=== PATIENT | female | born 1955 | race Caucasian/White ===

== ENCOUNTER 2016-12-21 13:34 | Outpatient (CLI) | payer BC ==
--- NOTE | 2016-12-21 14:31 | BD ---
DEXA BONE DENSITOMETRY: (Dual energy X-ray Absorptiometry) DATE: 12/21/16. HISTORY: A 61-year-old white female for followup age-related postmenopausal osteoporosis screening examinatio n. Height 68.5 minutes. Weight 167 pounds. Age of menopause 49 years. COMPARISON: 10/13/15. FINDINGS: The bone mineral density (BMD) is given in grams per square centimeter (g/cm2): LUMBAR SPINE: BMD(g/cm2) T-score Z-score L1: 0.845 -1.3 0.1 L2: 0.905 -1.1 0.4 L3: 0.995 -0.8 0.8 L4: 0.977 -0.8 0.9 Total: 0.932 -1.0 0.5 Change in BMD compared to previous DEXA: -0.3%. HIP: Femoral neck: 0.588 -2.3 -1.0 Total: 0.765 -1.5 -0.4 Change in BMD compared to previous DEXA: -0.8%. IMPRESSION: 1) The mean bone mineral density of the lumbar spine is normal. Fracture risk is not increased. 2) The bone mineral density of the femoral neck is osteopenic. Fracture risk is increased. RON Jim POS: CORA
--- NOTE | 2016-12-21 15:40 | MMO ---
BILATERAL SCREENING MAMMOGRAM: INDICATION: Annual screening evaluation. COMPARISON: Prior exam dated 09/04/14. FINDINGS: The interpretation of this examination was assisted with computer-aided detection. The breast parenchyma is heterogeneously dense which limits the sensitivity of mammography. There are benign-appearing calcifications within both the right and left breasts. No suspicious mass, cluster of microcalcifications, or area of architectural distortion is evident. IMPRESSION: BI-RADS category 2 - benign. Recommend routine annual mammographic screening. BIRADS 2: Benign Finding(s) Routine annual screening mammography (for women over age 40) POS: SUSANNE
== END 2016-12-21 13:35 | disposition home or self-care (01) ==
LOC: MAMMO 13:34
PROVIDERS: ATTEND Family Medicine
DX: Z12.31 Encounter for screening mammogram for malignant neoplasm of breast (principal); M85.80 Other specified disorders of bone density and structure, unspecified site
CPT/HCPCS: 77067; 77080; G0202

== ENCOUNTER 2017-12-26 09:56 | Outpatient (CLI) | payer BC | END 2017-12-26 09:57 | disposition home or self-care (01) | LOC: BICMAMMO 09:56 | PROVIDERS: ATTEND Family Medicine | DX: Z12.31 Encounter for screening mammogram for malignant neoplasm of breast (principal) | CPT/HCPCS: 77063; 77067 ==

== ENCOUNTER 2018-04-11 10:03 | Inpatient (IN) | payer BC ==
[2018-04-11 10:28] LABS: #Basophils 0.1 thou/uL (0.0-0.2); #Eosinphils 0.6 thou/uL (0.0-0.7); #Lymphocytes 1.1 thou/uL (1.20-3.40); #Monocytes 0.5 thou/uL (0.11-0.59); #Neutrophils 2.5 thou/uL (1.40-6.50); %Basophils 1.2 % (0.0-1.0); %Eosinophils 12.7 % (0.0-10.0); %Lymphocytes 23.3 % (21.0-51.0); %Neutrophils 51.8 % (42.0-75.0); Hemoglobin 13.4 g/dL (12.0-16.0); Mean Corpuscular HGB CONC 31.7 g/dL (32.0-36.0); Mean Corpuscular Hemoglobin 29.2 pg (27.0-31.0); Mean Corpuscular Volume 92.3 fL (78.0-98.0); Mean Platelet Volume 7.5 fL (7.4-10.4); Platelet Count 253 thou/uL (130-400); RBC Distribution Width 12.7 % (11.5-14.5); Red Blood Cell (RBC) Count 4.58 mill/uL (4.20-5.40); White Blood Cell (WBC) Count 4.8 thou/uL (4.8-10.8)
[2018-04-11] MEDS ORDERED: Ondansetron PF 4 MG/2 ML Vial ONE (10:33)
[2018-04-11] MEDS ORDERED: Fentanyl 100 MCG/2 ML VIAL ONE (10:42)
[2018-04-11 10:55] LABS: ALT (SGPT) 560 U/L (8-55); AST (SGOT) 322 U/L (5-34); Albumin 4.3 g/dL (3.4-4.8); Alkaline Phosphatase 292 U/L (40-150); Anion Gap 18 mmol/L (10-20); BUN (Urea Nitrogen) 23 mg/dL (9.8-20.1); Bilirubin, Total 9.3 mg/dL (0.2-1.2); Calc. Creatinine Clearance 0 mL/min (70-130); Calcium 10.2 mg/dL (7.8-10.44); Carbon Dioxide 22 mmol/L (23-31); Chloride 101 mmol/L (98-107); Estimated GFR-MDRD 79; Globulin 2.8 g/dL (2.4-3.5); Glucose 71 mg/dL (80-115); Lipase 27 U/L (8-78); Potassium 3.5 mmol/L (3.5-5.1); Protein, Total 7.1 g/dL (6.0-8.3); Sodium 137 mmol/L (136-145)
--- NOTE | 2018-04-11 11:33 | CT ---
CT ABDOMEN AND PELVIS WITH IV CONTRAST: Date: 04/11/18 HISTORY: Abdominal pain. Jaundice. FINDINGS: No comparison. Lung bases are clear. A 0.4 cm cyst is present within a nondilated ratna at the inferior pole of the left kidney. Small rig ht renal cysts. No urinary tract obstruction. Urinary bladder is decompressed. Degenerative changes lumbar spine. Lack of oral contrast limits evaluation of the bowel. No evidence of obstruction. There is subtle cir cumferential wall thickening involving the upper rectum and rectosigmoid junction. IMPRESSION: 1. Noncomplicated inflammatory appearance of the upper rectum and rectosigmoid junction. Clinical co rrelation regarding other signs and symptoms of noncomplicated proctitis is required. 2. Small, nonobstructing left renal calculus. POS: CORA
[2018-04-11 11:43] LABS: Blood, Urine Negative (Negative); Clarity CLOUDY (Clear); Glucose, Urine (Dipstick) Negative (Negative); Protein, Urine (Dipstick) Trace mg/dL (Neg-Trace); Specific Gravity, Urine 1.026 (1.002-1.036); Urobilinogen 0.2 mg/dL (0.2-1.0); pH, Urine 5.5 (5.0-9.0)
[2018-04-11 11:49] LABS: Bacteria/HPF None Seen HPF (None Seen); Hyaline Casts/LPF 0-3 HYALINE CAST LPF (0-3 Hyaline); Pathc Cast-AUWi Flag 0.87 (0-2.49); Squamous Epithelial 0-3 HPF (0-3)
[2018-04-11 11:50] LABS: Bilirubin Large (Negative); Leukocyte Negative (Negative); Nitrite Negative (Negative)
[2018-04-11 12:08] LABS: RBC/HPF 0-3 HPF (0-3)
[2018-04-11 12:09] LABS: Renal Epithelial 0-3 HPF (0-3); Transitional Epithelial 0-3 HPF (0-3)
--- NOTE | 2018-04-11 13:18 | ULT ---
GALLBLADDER ULTRASOUND: Date: 04/11/18 HISTORY: Right upper quadrant pain and jaundice. FINDINGS: Real-time imaging of the right upper quadrant demonstrates a contracted gallbladder. The patient does state she is NPO. I do not see any definite gallstones. Gallbladder wall appears thickened at 5-6 mm . Common duct is 4.0 mm. Liver parenchyma shows some heterogeneity, but no evidence of any type of di screte mass. Pancreas region is partially obscured. The right kidney is normal in size and is not obs tructed. IMPRESSION: Contracted gallbladder. The patient does state she is NPO. The gallbladder wall appears slightly thic kened, but no gallstones are identified. The common duct is normal in caliber at 4-5 mm. POS: TPC
[2018-04-11] MEDS ORDERED: ISOVUE-370 76%-LOCM 1 ML ONE (13:30)
[2018-04-11 15:33] LABS: HBCM Index 0.07 S/CO (0-0.79); Hep A IgM AB Non-Reactive (NonReactive); Hep A IgM S/CO 0.11 S/CO (0-0.79); Hep B Surf Ag Non-Reactive S/CO (NonReactive); Hepatitis B Core IgM Abs Non-Reactive (NonReactive)
[2018-04-11 15:38] LABS: Hep C IgG Ab Reflex HepC Qnt (NonReactive); Hep C Index 1.49 S/CO (0-0.79)
[2018-04-11] MEDS ORDERED: Ondansetron ODT 4 MG TAB PO PRN (16:36)
[2018-04-11] MEDS ORDERED: Ondansetron PF 4 MG/2 ML Vial IVP PRN (16:36)
[2018-04-11] MEDS ORDERED: Calcium Carbonate 500 MG ChewTAB PO PRN (16:36)
[2018-04-11] MEDS ORDERED: Senokot S 8.6-50 MG TAB PO PRN (16:36)
[2018-04-11] MEDS ORDERED: hydrALAZINE 20 MG/ML VIAL SLOW IVP PRN (16:38)
[2018-04-11 17:04] LABS: INR-International Normal Ratio 0.9; Prothrombin Time 12.7 SEC (12.0-14.7)
[2018-04-11 17:05] LABS: PTT 35.2 SEC (22.9-36.1)
--- NOTE | 2018-04-11 17:26 | HP ---
PRIMARY CARE DOCTOR: Dr. Reed. CHIEF COMPLAINT: Jaundice. HISTORY OF PRESENT ILLNESS: The patient is a 62-year-old female, who presented to the emergency room from her primary care physician's office with above complaints. Over the last 1 week, the patient has not been feeling well. She had flu-like symptoms. She felt generally weak and fatigued. She also had some loose stools. The stool was light color. She also noticed her urine to be dark. Later on, she started noticing darkening of her skin/jaundice. She also had some abdominal pain mainly on the right side, aggravated by food. She has lost approximately 5 pounds over the last 1 week. She has also lost her appetite. She felt nauseous without any vomiting. She had a colonoscopy approximately 10 years ago. She denies any nkkm-chi-lxrcjuf medications. She took some bpqa-lts-esdyehy decongestant over the last 3 or 4 days. She was on Bactrim 2 weeks ago for toe infection. The patient was found to have a bilirubin of 8.3 as outpatient yesterday. She was sent to the emergency room for evaluation. In the emergency room, bilirubin was 9.3 with AST 322, ALT 560 with alkaline phosphatase of 292. The patient drinks alcohol socially and denies any heavy alcohol intake. PAST MEDICAL HISTORY: Degenerative joint disease. PAST SURGICAL HISTORY: 1. Hysterectomy. 2. Rotator cuff repair. 3. Tubal ligation. ALLERGIES: THE PATIENT DENIES ANY DRUG ALLERGIES. SOCIAL HISTORY: The patient currently lives at home with her family. She is a nonsmoker. Drinks alcohol socially. She is . FAMILY HISTORY: Father with esophageal cancer. Diabetes also runs in her family. REVIEW OF SYSTEMS: All other review of systems were reviewed and were found negative. PHYSICAL EXAMINATION: VITAL SIGNS: Temperature 97.4, respirations 17, pulse rate of 93, blood pressure 123/80 with O2 saturation of 96% on room air. GENERAL: A 62-year-old female in no apparent distress, feels generally weak and fatigue. HEENT: Head is atraumatic, normocephalic. Sclerae are anicteric. Moist mucous membranes. No oral lesion. Jaundice noted. NECK: Supple. No JVD. No carotid bruit. LUNGS: Clear to auscultation bilaterally. No wheezing, rales, or rhonchi. HEART: S1, S2 present. Regular rate and rhythm. ABDOMEN: Soft, nontender. Bowel sounds are present. There was minimal tenderness over the right quadrant without any rebound or guarding. No costovertebral angle tenderness. EXTREMITIES: No edema or calf tenderness. NEUROLOGY: Grossly nonfocal. Moves all 4 extremities. PSYCHIATRY: Alert, awake, oriented x3. SKIN: Warm and dry. LYMPH NODES: No palpable lymph nodes in the neck. PERIPHERAL VASCULAR: Radial pulses palpable bilaterally. MUSCULOSKELETAL: No joint swelling or tenderness. LABORATORY FINDINGS: As discussed above. BUN 23, creatinine 0.74. WBC 4.8 with hemoglobin 13.4, platelets 253. CT scan of the abdomen and pelvis was negative for acute findings except for some thickening in the rectum. Ultrasound of the gallbladder showed contracted gallbladder with normal size common duct. IMPRESSION: 1. Acute Liver failure/Painless jaundice of unclear etiology. ?Bactrim induced vs Viral infection. r/o [employer] etiology 2. Dehydration. 3. Chronic kidney disease stage 2. 4. Generalized weakness, fatigue with flu-like symptoms and 5-pound weight loss over the last 1 week. 5. Contracted gallbladder. 6. Thickening of the upper rectum and the rectosigmoid colon on the CT scan. PLAN: The patient will be monitored on the medical floor. We will check viral hepatitis profile, ARELI, CMV, EBV and acetaminophen level. We will check PT/ INR. Consult Gastroenterology, Dr. Davis. Plan of care was discussed with the patient in detail. She stated understanding. Job ID: [id number] MTDD
[2018-04-11] MEDS: Sodium Chloride 0.9% 1,000 ML IV SCH (18:30)
[2018-04-11 19:23] VITALS: BMI 23.2
[2018-04-11 19:59] LABS: Acetaminophen Less than 6.0 mcg/mL (10.0-30.0)
[2018-04-11] MEDS: Famotidine 20 MG TAB PO SCH (20:58)
--- NOTE | 2018-04-11 22:14 | CON ---
DATE OF CONSULTATION: 04/11/2018 REASON: Jaundice and abnormal liver tests. HISTORY: Ms. Tay is a 62-year-old female without any significant medical illness, who was referred to the ER for evaluation of jaundice. Her symptoms started approximately 1 week ago when she had "upset" stomach characterized as mostly cramps followed by some loose stools. She did have some nausea, but without any actual emesis. She denies any severe localizing abdominal pain. She does have some malaise, but without any other significant symptoms. About 3 days ago, she began noticing dark urine and acholic stool. She was seen by her primary care doctor , who noted jaundice. Subsequent blood test was drawn and results came back yesterday , showed elevation of her liver enzymes and bilirubin. She was thus referred for further evaluation of possible gallbladder disease. After presenting to the ER , she had an abdominal pelvic CT that did not show any significant finding. Gallbladder ultrasound did not show any cholelithiasis. Common bile duct measures 4 mm. She denies any recent travels. She did take a course of Bactrim, finished 2 weeks ago for toe infection. She lives by herself. There is no exposure history. She does not have any risk factors for chronic liver disease. There are no prior blood transfusion, tattoos, sharing needles. There is no family history of liver disease. PAST MEDICAL HISTORY: 1. Prior hysterectomy. 2. Rotator cuff repair. 3. Tubal ligation. ALLERGIES: NONE. MEDICATIONS: At home include: 1. Ibuprofen 200 mg daily. 2. Multivitamin. SOCIAL HISTORY: The patient by herself. Has no tobacco or alcohol usage. She is a former smoker, stopped 12 years ago. The patient consumes 3 glasses of wine per week. FAMILY HISTORY: Negative for any known GI problem, liver disease, or GI malignancy. REVIEW OF SYSTEMS: 10-point review of systems did not show any other pertinent positives or negatives. Completely negative. PHYSICAL EXAMINATION: VITAL SIGNS: Temperature is 97.9, blood pressure 114/75, pulse of 90. GENERAL: She is alert, conversant, no distress. She is fully oriented. HEENT: Shows bilateral icteric sclerae. Oropharynx is clear. NECK: Supple. No adenopathy. CV: Shows normal S1 and S2. Regular rate and rhythm. CHEST: Shows breath sounds. No adventitious sounds. ABDOMEN: Soft and flat. No distention. No tympany. No tenderness. Liver edge is not palpable. Spleen was not palpable. EXTREMITIES: Shows no edema. LABORATORY DATA: WBCs 4.8, hemoglobin 13.4, platelet count of 253. PT 12.7, INR 0.9. Electrolytes within normal range. Creatinine 0.74. Bilirubin is 9.3, AST of 322, ALT of 560, alkaline phosphatase 292, globulin 2.8, lipase 27. Abdominal CT with IV contrast but no oral contrast, did not show any acute findings with a suggestion of mural thickening involving the rectosigmoid area. Gallbladder ultrasound showed a contracted gallbladder, but without any apparent stone. There is no intrahepatic ductal dilatation. Common duct measures 4 mm. ASSESSMENT: A 62-year-old female presents with marked transaminitis and cholecystitis without any obstructive findings on both ultrasound and CT. Differential diagnosis includes acute viral infection, drug-induced hepatitis (recent Bactrim usage), less likely autoimmune disorder or bile duct disease. RECOMMENDATIONS: 1. The patient's diet can be advanced. 2. We will send off serology to include ARELI, mitochondrial antibody, smooth muscle antibody, EBV panel, and quantitative HCV-RNA as she may have hepatitis C antibody positivity. EBV and CMV antibodies have been ordered. 3. No further diagnostic is indicated at this point, we will follow her LFT pattern. Job ID: [id number] [facility] CENTERMaynor
[2018-04-12] MEDS: Sodium Chloride 0.9% 1,000 ML IV SCH ×3 (02:32→17:54)
[2018-04-12 07:06] LABS: #Eosinphils 0.6 thou/uL (0.0-0.7); #Monocytes 0.4 thou/uL (0.11-0.59); #Neutrophils 1.8 thou/uL (1.40-6.50); %Basophils 1.2 % (0.0-1.0); %Eosinophils 16.5 % (0.0-10.0); %Lymphocytes 24.7 % (21.0-51.0); %Monocytes 10.9 % (0.0-10.0); %Neutrophils 46.7 % (42.0-75.0); Hemoglobin 11.5 g/dL (12.0-16.0); Mean Corpuscular HGB CONC 32.2 g/dL (32.0-36.0); Mean Corpuscular Hemoglobin 29.9 pg (27.0-31.0); Mean Corpuscular Volume 92.9 fL (78.0-98.0); Mean Platelet Volume 7.5 fL (7.4-10.4); Platelet Count 214 thou/uL (130-400); RBC Distribution Width 12.7 % (11.5-14.5); Red Blood Cell (RBC) Count 3.86 mill/uL (4.20-5.40); White Blood Cell (WBC) Count 3.9 thou/uL (4.8-10.8)
[2018-04-12 07:26] LABS: ALT (SGPT) 495 U/L (8-55); AST (SGOT) 287 U/L (5-34); Albumin 3.5 g/dL (3.4-4.8); Alkaline Phosphatase 250 U/L (40-150); Anion Gap 11 mmol/L (10-20); BUN (Urea Nitrogen) 15 mg/dL (9.8-20.1); Bilirubin, Total 7.5 mg/dL (0.2-1.2); Calc. Creatinine Clearance 88 mL/min (70-130); Calcium 9.1 mg/dL (7.8-10.44); Carbon Dioxide 25 mmol/L (23-31); Chloride 106 mmol/L (98-107); Estimated GFR-MDRD 82; Globulin 2.2 g/dL (2.4-3.5); Glucose 111 mg/dL (80-115); Lipase 22 U/L (8-78); Magnesium 1.9 mg/dL (1.6-2.6); Potassium 3.6 mmol/L (3.5-5.1); Protein, Total 5.7 g/dL (6.0-8.3); Sodium 138 mmol/L (136-145)
[2018-04-12] MEDS: Famotidine 20 MG TAB PO SCH ×2 (08:21→20:36)
--- NOTE | 2018-04-12 15:40 | PRG ---
DATE OF SERVICE: 04/12/2018 SUBJECTIVE: The patient subjectively feels better. She is ambulating. She is eating and drinking, although she gets full early. There is no nausea or vomiting. OBJECTIVE: VITAL SIGNS: Temperature is 98.0, blood pressure 103/64, and pulse of 80. GENERAL: She is alert, conversant, lucid, and oriented. HEENT: Shows bilateral icteric sclerae. Oropharynx clear. NECK: Supple. No adenopathy. CV: Shows normal S1 and S2. Regular rate and rhythm. CHEST: Shows breath sounds. ABDOMEN: Soft, nontender, good bowel sounds. EXTREMITIES: Show no edema. LABORATORY DATA: Electrolytes within normal range. Creatinine 0.72, bilirubin 7.5, AST 287, ALT 495, alkaline phosphatase 250, globulin 2.2. ASSESSMENT: 1. Elevation of liver tests, both in thiamine and bilirubin. No obstructive process seen on CT or ultrasound. Differential diagnosis includes drug-induced hepatitis (Bactrim), acute bowel infection, less likely autoimmune hepatitis or bile duct diseases. The patient may have underlying chronic hepatitis C, HCV RNA pending. 2. Will need elective colonoscopy at some point to address this questionable abnormality. 3. Questionable abnormality involving the rectosigmoid colon on CT, likely from underdistention. RECOMMENDATIONS: 1. The patient can be discharged to home from GI standpoint in a.m. while waiting for the rest of the lab results. 2. The patient can follow up with me in clinic in 1 to 2 weeks. Job ID: [id number]
[2018-04-12] MEDS ORDERED: Docusate 100 MG CAP PO PRN (18:33)
--- NOTE | 2018-04-12 18:34 | PDOC.PN ---
- Subjective Encounter Start Date: 04/12/18 Encounter Start Time: 09:30 Patient seen and examined for Hepatitis. Appetite slowly improving. No N/V. No new complaints. No overnight events - Objective Resuscitation Status - Order Detail: 04/11/18 16:36 Resuscitation Status Routine Resuscitation Status: FULL: Full Resuscitation MAR Reviewed: Yes Vital Signs & Weight: Vital Signs (12 hours) Temp Pulse Resp BP Pulse Ox 04/12/18 16:00 97.8 F 82 16 102/66 94 L 04/12/18 12:42 98.0 F 80 18 103/64 97 04/12/18 08:12 98.4 F 81 16 92/55 L 93 L 04/12/18 08:00 93 L Weight Weight 153 lb I&O: 04/11/18 04/12/18 04/13/18 06:59 06:59 06:59 Intake Total 1860 Balance 1860 Result Diagrams: 04/12/18 06:41 04/12/18 06:41 Phys Exam - Physical Examination Constitutional: NAD Respiratory: no wheezing, no rhonchi Cardiovascular: RRR, no rub Gastrointestinal: soft, non-tender, positive bowel sounds Musculoskeletal: no edema Neurological: moves all 4 limbs Dx/Plan - Plan DVT proph w/SCDs IMPRESSION: 1. Acute Liver failure/Painless jaundice of unclear etiology. ?Bactrim induced vs Viral infection. r/o [employer] etiology 2. Dehydration. 3. Chronic kidney disease stage 2. 4. Generalized weakness, fatigue with flu-like symptoms and 5-pound weight loss over the last 1 week. 5. Contracted gallbladder. 6. Thickening of the upper rectum and the rectosigmoid colon on the CT scan. Probably due to under distention 7. Positive Hep C antibody PLAN: Cont supportive care Cont IVF AM labs Await lab results Review of Systems - Review of Systems Respiratory: negative: Cough, Dry, Shortness of Breath, Hemoptysis, SOB with Excertion, Pleuritic Pain, Sputum, Wheezing Cardiovascular: negative: chest pain, palpitations, orthopnea, paroxysmal nocturnal dyspnea, edema, light headedness, other - Medications/Allergies Allergies/Adverse Reactions: Allergies Allergy/AdvReac Type Severity Reaction Status Date / Time No Known Drug Allergies Allergy Verified 04/11/18 16:45 Medications: Current Medications Calcium Carbonate (Tums) 1,000 mg PO Q4H PRN PRN Reason: Heartburn or Indigestion Famotidine (Pepcid) 20 mg PO BID [facility] Last Admin: 04/12/18 08:21 Dose: 20 mg Hydralazine HCl (Apresoline) 10 mg SLOW IVP Q4H PRN PRN Reason: SBP Greater Than 180 Sodium Chloride (Normal Saline 0.9%) 1,000 mls @ 125 mls/hr IV .Q8H [facility] Last Admin: 04/12/18 17:54 Dose: 1,000 mls Ondansetron HCl (Zofran Odt) 4 mg PO Q6H PRN PRN Reason: Nausea/Vomiting Ondansetron HCl (Zofran) 4 mg IVP Q6H PRN PRN Reason: Nausea/Vomiting Senna/Docusate Sodium (Senokot S) 2 tab PO BID PRN PRN Reason: Constipation Sodium Chloride (Flush - Normal Saline) 10 ml IVF PRN PRN PRN Reason: Saline Flush
[2018-04-13] MEDS ORDERED: Benzonatate 100 MG CAP PO PRN (02:27)
[2018-04-13] MEDS: Sodium Chloride 0.9% 1,000 ML IV SCH ×2 (02:43→11:21)
[2018-04-13] MEDS: Famotidine 20 MG TAB PO SCH (07:54)
[2018-04-13 09:02] VITALS: BP 103/60; TEMP 98.1
[2018-04-13 10:05] LABS: ALT (SGPT) 454 U/L (8-55); AST (SGOT) 240 U/L (5-34); Albumin 3.5 g/dL (3.4-4.8); Alkaline Phosphatase 252 U/L (40-150); Anion Gap 11 mmol/L (10-20); BUN (Urea Nitrogen) 5 mg/dL (9.8-20.1); Bilirubin, Direct 5.2 mg/dL (0.1-0.3); Bilirubin, Total 6.9 mg/dL (0.2-1.2); Calc. Creatinine Clearance 96 mL/min (70-130); Calcium 8.9 mg/dL (7.8-10.44); Carbon Dioxide 26 mmol/L (23-31); Chloride 106 mmol/L (98-107); Estimated GFR-MDRD 90; Glucose 127 mg/dL (80-115); Potassium 3.4 mmol/L (3.5-5.1); Protein, Total 5.9 g/dL (6.0-8.3); Sodium 140 mmol/L (136-145)
[2018-04-13] MEDS ORDERED: Potassium Chloride 20 MEQ TAB PO SCH (12:00)
[2018-04-13 15:41] LABS: ANA Symphony (Qualitative) Negative (Negative); ANA Symphony (Quantitative) 0.1 Ratio (< 0.7 Negative); dsDNA IgG Antibody 1.9 IU/mL (<10 Negative)
[2018-04-13 16:23] LABS: EliA Vaculitis New Method **** NEW METHOD ****; Mitochondrial Ab 0.6 U/mL (<4 Negative)
--- NOTE | 2018-04-14 07:57 | DIS ---
DATE OF ADMISSION: 04/11/2018 DATE OF DISCHARGE: 04/13/2018 DISCHARGE DISPOSITION: Home. FOLLOWUP: 1. Follow up with primary care physician, Dr. Savi Reed in 1 week. 2. Follow up with Dr. Davis in 2 weeks. ALLERGIES: NO KNOWN DRUG ALLERGIES. THE PATIENT WAS ADVISED TO FOLLOW UP ON THE LABS INCLUDING ARELI, CMV, EBV, ANTIMITOCHONDRIAL ANTIBODY, ANTI SMOOTH MUSCLE ANTIBODY. BRIEF HOSPITAL COURSE: The patient is a 62-year-old female, who was on Bactrim 2 weeks ago for toe infection, presented to the hospital with generalized weakness and jaundice. She also had flu-like symptoms over the last 1 week. She lost her appetite and lost approximately 5 pounds of weight last week. Please refer to the history and physical for further details. The patient was admitted to the hospital with a diagnosis of acute liver failure/painless jaundice. She underwent multiple blood studies, which are pending at the time of discharge. Possibilities include Bactrim versus viral infection. Autoimmune etiology is also a possibility. She showed good improvement with IV fluids. Bilirubin on the day of discharge is 6.9 from 9.3 on admission. Her hepatitis C antibody was positive. Hepatitis C RNA is pending at this time. She was evaluated by Gastroenterology Service. The patient has been cleared by Gastroenterology for discharge. Dr. Davis will follow up in the office in next 1 to 2 weeks with repeat labs. FINAL DIAGNOSES: 1. Acute liver failure/painless jaundice of unclear etiology. Possibilities include Bactrim versus viral infection versus autoimmune etiology. 2. Dehydration. 3. Chronic kidney disease stage 2. 4. Generalized weakness, fatigue with flu-like symptoms and 5-pound weight loss over the last 1 week. 5. Contracted gallbladder on the right upper quadrant. 6. Thickening of the upper rectum and rectosigmoid colon on a CT scan. This is probably due to underdistention. Also note that the patient did not have any oral contrast. 7. Positive hepatitis C antibody. Hepatitis C RNA PCR is pending at this time. PLAN: Plan of care was discussed with the patient in detail. She stated understanding. Job ID: [id number]
[2018-04-14 12:10] LABS: Hep C PCR-Quant HCV Not Detected IU/mL (.)
== END 2018-04-13 12:53 | disposition home or self-care (01) | DRG 442 ==
LOC: ERS 10:03 → T4-A 14:45
PROVIDERS: ADMIT Internal Medicine; ATTEND Internal Medicine
DX: K72.00 Acute and subacute hepatic failure without coma (principal); K82.0 Obstruction of gallbladder; M19.90 Unspecified osteoarthritis, unspecified site; E86.0 Dehydration; N18.2 Chronic kidney disease, stage 2 (mild); K63.89 Other specified diseases of intestine; R76.8 Other specified abnormal immunological findings in serum; R63.4 Abnormal weight loss; Z90.710 Acquired absence of both cervix and uterus; Z98.890 Other specified postprocedural states; Z98.51 Tubal ligation status; Z68.23 Body mass index [BMI] 23.0-23.9, adult; Z87.891 Personal history of nicotine dependence
CPT/HCPCS: 36415; 74177; 76705; 80048; 80053; 80074; 80076; 80307; 81001; 81003; 82150; 83516; 83690; 83735; 85025; 85610; 85730; 86038; 86225; 86645; 86663; 86664; 86665; 87522; 96361; 96374; 96375; J2405; J3010; Q9966

== ENCOUNTER 2022-03-23 11:57 | Outpatient (CLI) | payer MEDICARE | END 2022-03-23 11:58 | disposition home or self-care (01) | LOC: RAD 11:57 | PROVIDERS: ATTEND Family Medicine | DX: R05.1 Acute cough (principal) | CPT/HCPCS: 71046 ==

== ENCOUNTER 2023-07-12 08:45 | Day surgery (SDC) | payer MEDICARE ==
[2023-07-05 08:38] VITALS: BMI 22.4
[2023-07-12] MEDS ORDERED: Lidocaine 1% PF 5 ML VIAL ONE (11:00)
[2023-07-12] MEDS ORDERED: fentaNYL PF 100 MCG/2 ML SYRINGE ONE (11:00)
[2023-07-12] MEDS ORDERED: Rocuronium Bromide 10 MG/ML (10ML VIAL) ONE (11:00)
[2023-07-12] MEDS ORDERED: PROPOFOL 20 ML ONE (11:00)
[2023-07-12] MEDS ORDERED: EPINEPHrine 1 MG/ML VIAL ONE (11:14)
[2023-07-12] MEDS ORDERED: Bupivacaine 0.25% HCL 30 ML VIAL ONE (11:14)
[2023-07-12] MEDS ORDERED: Sodium Chloride 0.9% 100 ML ONE (12:13)
[2023-07-12] MEDS ORDERED: CEFAZOLIN 2 GM VIAL ONE (12:13)
[2023-07-12] MEDS ORDERED: Ondansetron PF 4 MG/2 ML Vial ONE (12:38)
[2023-07-12] MEDS ORDERED: PHENYLEPHRINE-NS 100 MCG/ML 10 ML SYRINGE ONE (12:40)
[2023-07-12] MEDS ORDERED: Dexamethasone 20 MG/5 ML VIAL ONE (12:43)
[2023-07-12] MEDS ORDERED: SUGAMMADEX SODIUM 200 MG/2 ML VIAL ONE (12:54)
== END 2023-07-12 14:44 | disposition home or self-care (01) ==
LOC: SDC 08:45
PROVIDERS: ATTEND Surgery
PROC: 0JBM0ZZ Excision of Left Upper Leg Subcutaneous Tissue and Fascia, Open Approach (ICD-10-PCS; principal; 2023-07-12)
DX: D17.24 Benign lipomatous neoplasm of skin and subcutaneous tissue of left leg (principal); M81.0 Age-related osteoporosis without current pathological fracture; D70.9 Neutropenia, unspecified; Z98.51 Tubal ligation status; Z90.710 Acquired absence of both cervix and uterus; Z98.890 Other specified postprocedural states; Z79.899 Other long term (current) drug therapy; Z87.891 Personal history of nicotine dependence; Z88.2 Allergy status to sulfonamides
CPT/HCPCS: 27043; J0171; 88304; J0665; J1100; J2405; J2704; J3490